=== PATIENT | female | born 1995 | race Two or more races ===

== ENCOUNTER 2020-11-18 22:27 | Emergency (ER) | payer SELFPAY ==
[~2020-11-18] VITALS: Ht 167.6 cm; Wt 109.0 kg
[2020-11-18 22:46] VITALS: BP 132/86
[2020-11-18] MEDS ORDERED: IBUPROFEN 800MG TABLET PO ONE (23:15)
[2020-11-18] MEDS ORDERED: TETANUS, DIPHTHERIA, PERTUSSIS VAC/PF 0.5ML (>7YR OLD) IM ONE (23:15)
== END 2020-11-19 00:13 | disposition left against medical advice (07) ==
LOC: ER 22:27
DX: M54.2 Cervicalgia (principal); S61.315A Laceration without foreign body of left ring finger with damage to nail, initial encounter; V49.49XA Driver injured in collision with other motor vehicles in traffic accident, initial encounter; Y93.89 Activity, other specified; Y92.488 Other paved roadways as the place of occurrence of the external cause
CPT/HCPCS: 99283